=== PATIENT | male | born 1935 | race Hispanic/Latino ===

== ENCOUNTER 2016-05-15 14:52 | Observation (INO) | payer MEDICARE, OTHER ==
[2016-05-15 15:07] VITALS: BMI 26.6
--- NOTE | 2016-05-15 15:38 | ED PDOC ---
Arrival/HPI - General Chief Complaint: Abdominal Pain Time Seen by Provider: 05/15/16 15:06 Historian: Patient - History of Present Illness Narrative History of Present Illness (Text): 05/15/16 15:31 80-year-old male presents today with a sudden onset of diffuse abdominal cramping. Patient states symptoms started about an hour to an hour and a half prior to arrival. Patient is C/O crampy diffuse abd pain. no n/v/d/c. no cp or sob. c/o weakness. denies fever/chills. pt states he was feeling fine until symptoms started after eating a cracker with butter. pt states pain is starting to radiate to the back. no urinary symptoms. no other complaints. Past Medical History - Provider Review Nursing Documentation Reviewed: Yes - Travel History Have you recently traveled outside [place] w/in the past 3 mons?: No - Infectious Disease Hx of Infectious Diseases: None - Cardiac Hx Cardiac Disorders: Yes Other/Comment: cardiac stent x2 15 yrs ago had mi - Endocrine/Metabolic Hx Diabetes Mellitus Type 2: Yes - Hematological/Oncological Hx Cancer: Yes (skin ca melanoma, l arm, r leg) - Integumentary Other/Comment: scars to left arm and right leg from melanoma sx, scar to left groin lump removed, left thigh skin graft scar to left heel - Musculoskeletal/Rheumatological Hx Falls: No - Psychiatric Hx Substance Use: No - Surgical History Other/Comment: pt stepped on a nail developed an infection skin graft from left thigh to left heel, left heel smaller than right, sx done by dr rico according to pt dr rico removed part of left heel and he had cancer of left heel, left groin lump removed 1 yr later - Anesthesia Hx Anesthesia: No Hx Anesthesia Reactions: No Hx Malignant Hyperthermia: No Family/Social History - Physician Review Nursing Documentation Reviewed: Yes Family/Social History: Unknown Family HX Smoking Status: Former Smoker Hx Alcohol Use: No Hx Substance Use: No Allergies/Home Meds Allergies/Adverse Reactions: Allergies No Known Allergies Allergy (Verified 03/21/15 09:56) Home Medications: Home Meds Medication Instructions Recorded Confirmed GlipiZIDE [Glucotrol] 2.5 mg PO DAILY 03/21/15 03/21/15 Ramipril [Altace] 10 mg PO DAILY 03/21/15 03/21/15 Simvastatin 20 mg PO DIN 03/21/15 03/21/15 Review of Systems - Review of Systems Constitutional: Fatigue. absent: Fevers Respiratory: absent: SOB, Cough Cardiovascular: absent: Chest Pain, Palpitations Gastrointestinal: Abdominal Pain. absent: Constipation, Diarrhea, Nausea, Vomiting Genitourinary Male: absent: Dysuria, Frequency, Hematuria Musculoskeletal: Back Pain. absent: Arthralgias Skin: absent: Rash, Pruritis Neurological: absent: Headache, Dizziness Psychiatric: absent: Anxiety, Depression Physical Exam Vital Signs Reviewed: Yes Vital Signs Temp Pulse Resp BP Pulse Ox 05/15/16 19:27 76 16 149/78 95 05/15/16 16:53 80 17 145/60 96 05/15/16 15:07 97.3 F L 72 18 181/79 H 98 Temperature: Afebrile Blood Pressure: Normal Pulse: Regular Respiratory Rate: Normal Appearance: Positive for: Well-Appearing, Non-Toxic, Uncomfortable Pain Distress: Moderate Mental Status: Positive for: Alert and Oriented X 3 - Systems Exam Head: Present: Atraumatic Mouth: Present: Moist Mucous Membranes Neck: Present: Normal Range of Motion Respiratory/Chest: Present: Clear to Auscultation, Good Air Exchange. No: Respiratory Distress, Accessory Muscle Use Cardiovascular: Present: Regular Rate and Rhythm Abdomen: Present: Tenderness (minimally diffuse tenderness), Normal Bowel Sounds. No: Distention, Peritoneal Signs, Rebound, Guarding Back: Present: Normal Inspection Upper Extremity: Present: Normal ROM Lower Extremity: Present: Normal ROM Neurological: Present: GCS=15, Speech Normal Skin: Present: Warm, Dry, Normal Color. No: Rashes Psychiatric: Present: Alert, Oriented x 3 Medical Decision Making ED Course and Treatment: 05/15/16 15:39 Patient is nontoxic well appearing with stable vital signs presenting with diffuse abdominal pain, diaphoretic. pt immediately seen and evaluated by dr. pabon ekg; NSR at 76b/m, no st elevations, normal intervals. reviewed by dr. pabon. cxr; wnl CBC wnl CMP glucose 193 Amylase wnl Lipase wnl lactate: 3.0 trop: <0.01 Urinalysis: + ketones Patient reassessment:pt had multiple bowel movement in er; states he is feeling a little better. does not want pain medications. CAT scan: FINDINGS: CT ANGIOGRAPHY OF THE CHEST WITH & WITHOUT CONTRAST: AORTA (CHEST AND ABDOMEN): The thoracic and abdominal aorta are unremarkable, without aneurysm, dissection or rupture. No intramural thrombus identified in the thoracic aorta on the non-contrast ct of the chest. The celiac axis, superior mesenteric artery, inferior mesenteric artery and the renal arteries are widely patent. The pelvic arteries are unremarkable. LUNGS: Clear. No nodule, mass or consolidation. MEDIASTINUM: Unremarkable. Normal caliber aorta and pulmonary arterial trunk. No aortic dissection. Normal size heart. There is calcification of the coronary arteries LYMPH NODES: Unremarkable. PLEURA: Unremarkable. No pneumothorax. No pleural fluid. BONES: Unremarkable. OTHER FINDINGS: None. CT ANGIOGRAPHY OF THE ABDOMEN AND PELVIS WITH CONTRAST: LIVER: Unremarkable. No gross lesion or ductal dilatation. GALLBLADDER AND BILE DUCTS: Unremarkable. PANCREAS: Unremarkable. No gross lesion or ductal dilatation. SPLEEN: Unremarkable. ADRENALS: Unremarkable. No mass. KIDNEYS AND URETERS: Unremarkable. No hydronephrosis. No solid mass. VASCULATURE: Unremarkable. No aortic aneurysm. STOMACH AND BOWEL: Unremarkable. No obstruction. No gross mural thickening. APPENDIX: Normal appendix. PERITONEUM: Unremarkable. No free fluid. No free air. LYMPH NODES: Unremarkable. No enlarged lymph nodes. BLADDER: Unremarkable. REPRODUCTIVE: Unremarkable. BONES: No acute fracture. OTHER FINDINGS: None. IMPRESSION: No evidence of dissection or aneurysm. No evidence of pulmonary embolus pt reassessment; still with abdominal pain. pt only wanted 1/2 of the medication for pain. will repeat lactic acid; case discussed with dr. dawson; will admit observational status to tele for lactic acidosis and abdominal pain. Impression: Abdominal pain, lactic acidosis admit to tele dr. dawson 05/15/16 19:54 Repeat lactic acid; 1.9 - Lab Interpretations Lab Results: 05/15/16 15:30 05/15/16 15:30 Lab Results 05/15/16 17:05: Urine Color Yellow, Urine Appearance Clear, Urine pH 5.5, Ur Specific [place] >= 1.030, Urine Protein 100 H, Urine Glucose (UA) 100 H, Urine Ketones Trace H, Urine Blood Moderate H, Urine Nitrate Negative, Urine Bilirubin Negative, Urine Urobilinogen 0.2, Ur Leukocyte Esterase Negative, Urine RBC 0 - 2, Urine WBC 0 - 2, Ur Epithelial Cells 0 - 2, Urine Bacteria Few 05/15/16 15:30: WBC 8.7 D, RBC 6.49 H, Hgb 12.3 L, Hct 37.5 L, MCV 57.8 L, MCH 19.0 L, MCHC 32.8, RDW 17.8 H, Plt Count 177, Gran % 59.9, Lymph % (Auto) 32.8, [place] % (Auto) 3.8, Eos % (Auto) 2.3, Baso % (Auto) 1.2, Gran # 5.21, Lymph # 2.9 , [place] # 0.3, Eos # 0.2, Baso # 0.10, PT 11.7, INR 1.08, APTT 25.8, pO2 82 H, VBG pH 7.34, VBG pCO2 41.0, VBG HCO3 22.1, VBG Total CO2 23.4, VBG O2 Sat (Calc ) 97.7 H, VBG Base Excess -3.5 L, VBG Potassium 3.6, Glucose 196 H, Lactate 3.0 H, FiO2 21.0, Sodium 138.0, Potassium 3.4 L, Chloride 103.0, Carbon Dioxide 23, Anion Gap 16, BUN 9, Creatinine 0.8, Est GFR ( Amer) > 60, Est GFR (Non- Af Amer) > 60, Random Glucose 193 H, Calcium 9.4, Total Bilirubin 0.8, AST 26, ALT 18, Alkaline Phosphatase 70, Lactate Dehydrogenase 438, Total Creatine Kinase 72, Troponin I < 0.01 D, Total Protein 7.9, Albumin 4.4, Globulin 3.4, Albumin/Globulin Ratio 1.3, Amylase 96, Lipase 79, Venous Blood Potassium 3.6, Blood Type A POSITIVE, Antibody Screen Negative, BBK History Checked No verified bt - RAD Interpretation Radiology Orders: 05/15/16 15:23 CHEST PORTABLE [RAD] Stat 05/15/16 16:06 ANGIOGRAPHY DISECTION PROTOCOL [CT] Stat - Medication Orders Current Medication Orders: Discontinued Medications Sodium Chloride (Sodium Chloride 0.9%) 500 mls @ 999 mls/hr IV .Q31M STA Stop: 05/15/16 16:25 Last Admin: 05/15/16 16:15 Dose: 999 MLS/HR eMAR Start Stop Document 05/15/16 16:15 SF (Rec: 05/15/16 16:15 SF [id number]) Intravenous Solution Start Date 05/15/16 Start Time 16:15 End Date 05/15/16 End time 16:46 Total Infusion Time 31 Iohexol (Omnipaque 350 150 Ml) Confirm Administered Dose 150 ml .ROUTE .STK-MED ONE Stop: 05/15/16 16:23 Morphine Sulfate (Morphine) 2 mg IVP STAT STA Stop: 05/15/16 15:56 Last Admin: 05/15/16 16:19 Dose: 2 MG MAR Pain Assessment Document 05/15/16 16:19 SF (Rec: 05/15/16 16:20 [email or web address] Pain Reassessment Is this a pain reassessment? Yes Sleep Is patient sleeping during reassessment? No Presence of Pain Presence of Pain Yes Pain Scale Used Pain Scale Used Numeric Location Pain Location Body Site Abdomen Description Description Constant Intensity of Pain at present 7 IVP Administration Document 05/15/16 16:19 SF (Rec: 05/15/16 16:20 [email or web address] Charges for Administration # of IVP Administrations 1 Disposition/Present on Arrival - Present on Arrival Any Indicators Present on Arrival: No History of DVT/PE: No History of Uncontrolled Diabetes: No Urinary Catheter: No History of Decub. Ulcer: No History Surgical Site Infection Following: None - Disposition Have Diagnosis and Disposition been Completed?: Yes Diagnosis: Intractable abdominal pain Disposition: HOSPITALIZED Disposition Time: 18:00 Patient Plan: Observation, Telemetry Patient Problems: Current Active Problems Problem Status Diagnosed Intractable abdominal pain Acute Condition: FAIR
[2016-05-15 15:49] LABS: ADD MANUAL DIFF? NO
--- NOTE | 2016-05-15 15:54 | RAD ---
HISTORY: ABD PAIN COMPARISON: 03/21/2015 FINDINGS: LUNGS: No active pulmonary disease. PLEURA: No significant pleural effusion identified, no pneumothorax apparent. CARDIOVASCULAR: Normal. OSSEOUS STRUCTURES: No significant abnormalities. VISUALIZED UPPER ABDOMEN: Normal. OTHER FINDINGS: None. IMPRESSION: No active disease.
[2016-05-15 15:55] LABS: BASO % 1.2 % (0.0-3.0); EOS # 0.2 (0.0-0.7); EOS % 2.3 % (1.5-5.0); GRAN # 5.21 (1.4-6.5); GRAN % 59.9 % (50.0-68.0); HEMATOCRIT 37.5 % (42.0-52.0); LYMPH # 2.9 (1.2-3.4); LYMPH % 32.8 % (22.0-35.0); MEAN CELL VOLUME 57.8 fL (80.0-105.0); MEAN CORPUSCULAR HGB CONC 32.8 g/dl (31.0-37.0); MONO # 0.3 (0.1-0.6); MONO % 3.8 % (1.0-6.0); PLATELET COUNT 177 10^3/uL (120.0-450.0); RED CELL DISTRIBUTION WIDTH 17.8 % (11.5-14.5); WHITE BLOOD COUNT 8.7 10^3/ul (4.5-11.0)
[2016-05-15] MEDS ORDERED: Sodium Chloride 0.9% 500 ML IV STA (15:55)
[2016-05-15] MEDS ORDERED: Morphine 2 mg/ml ISec IVP STA (15:55)
[2016-05-15 15:56] LABS: VENOUS BLOOD GAS BASE EXCESS -3.5 mmol/L (0.0-2.0); VENOUS BLOOD PH 7.34 (7.32-7.43)
[2016-05-15 16:04] LABS: ALB/GLOB RATIO 1.3 (1.1-1.8); ALKALINE PHOSPHATASE 70 U/L (38-133); ALT/SGPT 18 U/L (7-56); AMYLASE 96 U/L (35-125); AST/SGOT 26 U/L (15-59); BILIRUBIN,TOTAL 0.8 mg/dL (0.2-1.3); BLOOD UREA NITROGEN 9 mg/dL (7-21); CALCIUM 9.4 mg/dL (8.4-10.5); CARBON DIOXIDE 23 mmol/L (21-33); CHLORIDE 100 mmol/L (98-107); GFR AFRICAN-AMERICAN > 60; GLUCOSE,RANDOM 193 mg/dL (70-110); LIPASE 79 U/L (23-300); POTASSIUM 3.4 mmol/L (3.6-5.0); SODIUM 136 mmol/L (132-148); TOTAL PROTEIN 7.9 g/dL (5.8-8.3)
[2016-05-15 16:06] LABS: INR 1.08 (0.93-1.08); PARTIAL THROMBOPLASTIN TIME 25.8 Seconds (23.7-30.8)
[2016-05-15 16:18] LABS: TROPONIN I < 0.01 ng/mL
[2016-05-15 17:28] LABS: PH,URINE 5.5 (4.7-8.0); URINE BILIRUBIN NEGATIVE (NEGATIVE); URINE BLOOD MODERATE (NEGATIVE); URINE GLUCOSE (UA) 100 mg/dL (NEGATIVE); URINE KETONE TRACE mg/dL (NEGATIVE); URINE LEUKOCYTE ESTERASE NEGATIVE Leu/uL (NEGATIVE); URINE PROTEIN 100 mg/dL (<30 mg/dL); URINE UROBILINOGEN 0.2 E.U./dL (<1 E.U./dL)
[2016-05-15 17:30] LABS: URINE APPEARANCE CLEAR (CLEAR); URINE COLOR YELLOW (YELLOW)
[2016-05-15 17:43] LABS: URINE BACTERIA FEW (NEG); URINE EPITHELIAL CELLS 0 - 2 /hpf (0-5); URINE RBC 0 - 2 /hpf (0-2); URINE WBC 0 - 2 /hpf (0-6)
--- NOTE | 2016-05-15 18:12 | CT ---
PROCEDURE: CT Angiography Chest, Abdomen and Pelvis with and without intravenous contrast HISTORY: diffuse abdominal pain, back pain COMPARISON: None. TECHNIQUE: Contiguous axial images of the chest, abdomen and pelvis were obtained in the phase of aortic enhancement. A noncontrast enhanced CT of the chest was also obtained to evaluate for possible intramural thrombus. Coronal and sagittal reformats were generated. IV dose administered: 145 cc of Omni 350 Radiation dose: Total exam DLP = 1666 mGy-cm. FINDINGS: CT ANGIOGRAPHY OF THE CHEST WITH & WITHOUT CONTRAST: AORTA (CHEST AND ABDOMEN): The thoracic and abdominal aorta are unremarkable, without aneurysm, dissection or rupture. No intramural thrombus identified in the thoracic aorta on the non-contrast ct of the chest. The celiac axis, superior mesenteric artery, inferior mesenteric artery and the renal arteries are widely patent. The pelvic arteries are unremarkable. LUNGS: Clear. No nodule, mass or consolidation. MEDIASTINUM: Unremarkable. Normal caliber aorta and pulmonary arterial trunk. No aortic dissection. Normal size heart. There is calcification of the coronary arteries LYMPH NODES: Unremarkable. PLEURA: Unremarkable. No pneumothorax. No pleural fluid. BONES: Unremarkable. OTHER FINDINGS: None. CT ANGIOGRAPHY OF THE ABDOMEN AND PELVIS WITH CONTRAST: LIVER: Unremarkable. No gross lesion or ductal dilatation. GALLBLADDER AND BILE DUCTS: Unremarkable. PANCREAS: Unremarkable. No gross lesion or ductal dilatation. SPLEEN: Unremarkable. ADRENALS: Unremarkable. No mass. KIDNEYS AND URETERS: Unremarkable. No hydronephrosis. No solid mass. VASCULATURE: Unremarkable. No aortic aneurysm. STOMACH AND BOWEL: Unremarkable. No obstruction. No gross mural thickening. APPENDIX: Normal appendix. PERITONEUM: Unremarkable. No free fluid. No free air. LYMPH NODES: Unremarkable. No enlarged lymph nodes. BLADDER: Unremarkable. REPRODUCTIVE: Unremarkable. BONES: No acute fracture. OTHER FINDINGS: None. IMPRESSION: No evidence of dissection or aneurysm. No evidence of pulmonary embolus
--- NOTE | 2016-05-15 18:21 | CARD ---
APPROVED REPORT EKG Measurement Heart [id number] SD 208P [id number] <Conclusion> Normal sinus rhythm Septal infarct, age undetermined Abnormal ECG
[2016-05-15 19:02] LABS: VENOUS BLOOD GAS BASE EXCESS -2.2 mmol/L (0.0-2.0); VENOUS BLOOD PH 7.28 (7.32-7.43)
[2016-05-15] MEDS: Insulin Reg-LOW-Coverage SC SCH (22:08)
--- NOTE | 2016-05-15 22:55 | CP.PCM.CON ---
History of Present Illness - History of Present Illness History of Present Illness: General Surgery consult note for Dr. Muir Consult reason: abdominal pain/diarrhea Pt is an 80 M with PMH of CAD with cardiac stents, DVT, DM2, melanoma, and HLD who presented to the ED today with abdominal cramping pain for a few hours duration. Patient stated he had just finished eating lunch of cookies and butter when he experienced diffuse cramping abdominal pain that was eventually accompanied by lower back pain. Patient stated that pain improved substantially after he had several watery bowel movements in the ED. Patient has had 7 liquid BM's of light brown liquid stool. Patient denies any melena, hematochezia, nausea, vomiting, fevers, chills, dysuria, hematuria, flank pain, chest pain, palpitations, and SOB. Pt denies any previous episodes. Patient denies eating any spoiled food, sick contacts, or any prior history of indigestion, constipation, diarrhea. Lactic acid on admit: 3.0. Lactic acid 3 hours later: 1.9 CT angio of chest, abdomen, and pelvis with IV contrast: no aneurysms, pulmonary embolisms, abdominal and pelvic vessels patent, no signs of appendicitis or bowel ishemia. Pt states mild residual abdominal pain and persistent diarrhea, but denies nausea, vomiting, back pain, or any other symptoms. PMH: CAD, DM2, HLD, DVT PSH: melanoma of the skin excision (multiple), Debridement and skin graft of left heel wound, L groin lymph node excisional biopsy All: NKDA Social: smoked 2PPD for 50 years, quit 15 years ago. History of 2-3 beers on weekends, quit 50 years ago. Denies drug use. Review of Systems - Review of Systems All systems: reviewed and no additional remarkable complaints except - Constitutional Constitutional: As Per HPI - EENT Nose/Mouth/Throat: absent: Nasal Congestion, Nasal Discharge - Cardiovascular Cardiovascular: As Per HPI - Respiratory Respiratory: As Per HPI - Gastrointestinal Gastrointestinal: As Per HPI - Genitourinary Genitourinary: As Per HPI - Musculoskeletal Musculoskeletal: Muscle Cramps (occasional right calf cramps). absent: Numbness , Tingling - Integumentary Integumentary: absent: Lesions, New Lesions - Neurological Neurological: absent: Numbness, Tingling - Endocrine Endocrine: absent: Fatigue, Palpitations Past Patient History - Infectious Disease Hx of Infectious Diseases: None - Past Social History Smoking Status: Former Smoker Alcohol: Other (former occasional drinker) Drugs: Denies Home Situation {Lives}: Alone - CARDIAC Hx Cardiac Disorders: Yes Hx Hypercholesterolemia: Yes Other/Comment: cardiac stent x2 15 yrs ago had mi - ENDOCRINE/METABOLIC Hx Diabetes Mellitus Type 2: Yes - HEMATOLOGICAL/ONCOLOGICAL Hx Cancer: Yes (skin ca melanoma, l arm, r leg) - INTEGUMENTARY Other/Comment: scars to left arm and right leg from melanoma sx, scar to left groin lump removed, left thigh skin graft scar to left heel - MUSCULOSKELETAL/RHEUMATOLOGICAL Hx Falls: No - PSYCHIATRIC Hx Substance Use: No - SURGICAL HISTORY Other/Comment: pt stepped on a nail developed an infection skin graft from left thigh to left heel, left heel smaller than right, sx done by dr rico according to pt dr rico removed part of left heel and he had cancer of left heel, left groin lump removed 1 yr later - ANESTHESIA Hx Anesthesia: No Hx Anesthesia Reactions: No Hx Malignant Hyperthermia: No Meds Allergies/Adverse Reactions: Allergies Allergy/AdvReac Type Severity Reaction Status Date / Time No Known Allergies Allergy Verified 03/21/15 09:56 - Medications Medications: Current Medications Apixaban (Eliquis) 5 mg PO BID [facility] PRN Reason: Protocol Atorvastatin Calcium (Lipitor) 10 mg PO DIN ANGIE Glipizide (Glucotrol) 2.5 mg PO DAILY [facility] Insulin Human Regular (Humulin R Low) 0 units SC ACHS [facility] PRN Reason: Protocol Last Admin: 05/15/16 22:08 Dose: Not Given Metoprolol Tartrate (Lopressor) 25 mg PO BID ANGIE Ramipril (Altace) 10 mg PO DAILY [facility] Physical Exam - Constitutional Appears: Well, Non-toxic, No Acute Distress - Head Exam Head Exam: ATRAUMATIC, NORMOCEPHALIC - Eye Exam Eye Exam: Normal appearance. absent: Conjunctival injection, Scleral icterus - ENT Exam ENT Exam: Mucous Membranes Moist, Normal Oropharynx - Respiratory Exam Respiratory Exam: Clear to Auscultation Bilateral, NORMAL BREATHING PATTERN. absent: Accessory Muscle Use - Cardiovascular Exam Cardiovascular Exam: RRR, +S1, +S2 - GI/Abdominal Exam GI & Abdominal Exam: Distended, Soft. absent: Guarding, Mass, Tenderness - Extremities Exam Extremities exam: Positive for: normal inspection, pedal pulses present. Negative for: calf tenderness, pedal edema, tenderness - Back Exam Back exam: NORMAL INSPECTION. absent: paraspinal tenderness, rash noted - Neurological Exam Neurological exam: Alert, Oriented x3 - Psychiatric Exam Psychiatric exam: Normal Affect, Normal Mood - Skin Skin Exam: Dry, Intact, Normal Color, Warm Results - Vital Signs Recent Vital Signs: Last Vital Signs Temp 97.3 F L 05/15/16 15:07 Pulse 76 05/15/16 19:27 Resp 16 05/15/16 19:27 BP 149/78 05/15/16 19:27 Pulse Ox 95 05/15/16 19:27 - Labs Result Diagrams: 05/15/16 15:30 05/15/16 15:30 Labs: Laboratory Results - last 24 hr 05/15/16 05/15/16 05/15/16 18:30 20:30 21:30 pO2 30 VBG pH 7.28 L VBG pCO2 54.0 VBG HCO3 25.4 VBG Total CO2 27.1 VBG O2 Sat (Calc) 50.2 VBG Base Excess -2.2 L VBG Potassium 5.0 Sodium 135.0 Chloride 103.0 Glucose 138 H Lactate 1.9 FiO2 21.0 POC Glucose (mg/dL) 127 H Venous Blood Potassium 5.0 Blood Type Confirm A POSITIVE - Imaging and Cardiology CT scan - abdomen Status: Image reviewed by me, Report reviewed by me CT scan - chest Status: Image reviewed by me, Report reviewed by me CT scan - pelvis Status: Image reviewed by me, Report reviewed by me Assessment & Plan - Assessment and Plan (Free Text) Assessment: 80M with PMH of CAD, DVT, DM2, and HLD with diffuse cramping abdominal pain and diarrhea afebrile, VSS no leukocytosis, mild anemia Lactic acid on admit: 3.0. Lactic acid 3 hours later: 1.9 CT angio of chest, abdomen, and pelvis with IV contrast: no aneurysms, pulmonary embolisms, abdominal and pelvic vessels patent, no signs of appendicitis or bowel ischemia. Plan: -No indication for emergent surgical intervention: abdominal exam benign, lactic acid wnl, pain improved, no acute pathology on CTA -serial abdominal exams -f/u AM labs -ADAT -Monitor I/O's -management per primary team -pain and nausea medication PRN, DVT/GI ppx -further recs per Dr. Muir Thank you for this consult Vicki Sterling, PGY1
[2016-05-16 00:07] VITALS: RESP 20
[2016-05-16 05:37] VITALS: O2SAT 98
[2016-05-16] MEDS ORDERED: Pantoprazole 40 mg EC Tab PO SCH (06:30)
[2016-05-16 07:37] LABS: MEAN CELL VOLUME 57.2 fL (80.0-105.0); MEAN CORPUSCULAR HEMOGLOBIN 18.9 pg (25.0-35.0); PLATELET COUNT 189 10^3/uL (120.0-450.0); RED CELL DISTRIBUTION WIDTH 17.9 % (11.5-14.5); WHITE BLOOD COUNT 8.6 10^3/ul (4.5-11.0)
[2016-05-16 07:50] LABS: ALB/GLOB RATIO 1.3 (1.1-1.8); ALKALINE PHOSPHATASE 57 U/L (38-133); ALT/SGPT 19 U/L (7-56); AMYLASE 77 U/L (35-125); AST/SGOT 28 U/L (15-59); BILIRUBIN,TOTAL 0.7 mg/dL (0.2-1.3); BLOOD UREA NITROGEN 14 mg/dL (7-21); CALCIUM 8.6 mg/dL (8.4-10.5); CARBON DIOXIDE 22 mmol/L (21-33); CHLORIDE 104 mmol/L (95-110); GFR AFRICAN-AMERICAN > 60; GLUCOSE,RANDOM 126 mg/dL (70-110); LIPASE 47 U/L (23-300); POTASSIUM 3.8 mmol/L (3.6-5.0); SODIUM 137 mmol/L (132-148); TOTAL PROTEIN 7.1 g/dL (5.8-8.3)
[2016-05-16] MEDS: Insulin Reg-LOW-Coverage SC SCH (08:14)
--- NOTE | 2016-05-16 08:51 | CP.PCM.PN ---
Subjective - Date & Time of Evaluation Date of Evaluation: 05/16/16 Time of Evaluation: 08:42 - Subjective Subjective: SURGICAL PROGRESS NOTE FOR DR. MUIR Patient seen and examined at bedside. Patient continues to c/o of abd pain diffusely, with watery diarrhea. Denies having any blood in stool. Also c/o nausea but denies having any vomiting. Patient had one episode of cold sweats when the abd pain began. Objective - Vital Signs/Intake and Output Vital Signs (last 24 hours): Temp Pulse Resp BP Pulse Ox 98.4 F 84 20 157/80 H 98 05/16/16 05:36 05/16/16 07:35 05/16/16 05:36 05/16/16 05:36 05/16/16 05:36 Intake and Output: 05/16/16 05/16/16 06:59 18:59 Intake Total 240 Balance 240 - Medications Medications: Current Medications Apixaban (Eliquis) 5 mg PO BID [facility] PRN Reason: Protocol Atorvastatin Calcium (Lipitor) 10 mg PO DIN [facility] Glipizide (Glucotrol) 2.5 mg PO DAILY [facility] Insulin Human Regular (Humulin R Low) 0 units SC ACHS [facility] PRN Reason: Protocol Last Admin: 05/16/16 08:14 Dose: Not Given Metoprolol Tartrate (Lopressor) 25 mg PO BID [facility] Ondansetron HCl (Zofran Tab) 4 mg PO Q8H PRN PRN Reason: Nausea/Vomiting Pantoprazole Sodium (Protonix Ec Tab) 40 mg PO 0630 [facility] Last Admin: 05/16/16 05:53 Dose: 40 mg Ramipril (Altace) 10 mg PO DAILY [facility] - Labs Labs: 05/16/16 07:00 05/16/16 07:00 PT 11.7 Seconds (9.9-11.8) 05/15/16 15:30 INR 1.08 (0.93-1.08) 05/15/16 15:30 APTT 25.8 Seconds (23.7-30.8) 05/15/16 15:30 - Constitutional Appears: Non-toxic, No Acute Distress - Respiratory Exam Respiratory Exam: absent: Accessory Muscle Use, Respiratory Distress - GI/Abdominal Exam GI & Abdominal Exam: Soft. absent: Distended, Firm, Rigid, Tenderness - Neurological Exam Neurological Exam: Alert, Awake, Oriented x3 - Psychiatric Exam Psychiatric exam: Normal Affect, Normal Mood - Skin Skin Exam: Dry, Intact, Normal Color, Warm Assessment and Plan - Assessment and Plan (Free Text) Assessment: 80M with PMH of CAD, DVT, DM2, and HLD with diffuse cramping abdominal pain and diarrhea. Plan: -No indication for emergent surgical intervention -management per primary team Will discuss with attending Dr. Muir for further recs Bobbi Medina PGY1
--- NOTE | 2016-05-16 09:56 | HP ---
CHIEF COMPLAINT AND HISTORY OF PRESENT ILLNESS: This is an 80-year-old male who is coming in to the hospital with abdominal pain. He has a past medical history of coronary artery disease, diabetes typ e 2, melanoma, dyslipidemia and DVT. He came in with crampy abdominal pain. He says that it was acu te onset, started about an hour prior to coming in to the hospital. He did not have any chest pain, no shortness of breath, no nausea, no vomiting, no fevers or chills, no dysuria or frequency. The pa herlinda says it started after he had been eating crackers. He said it was 10/10 pain. Nothing was delia ing the pain better or worse, so he came in for further evaluation. ALLERGIES: No known drug allergies. HOME MEDICATIONS: Glucotrol, Altace and simvastatin. PAST MEDICAL HISTORY: As above. PAST SURGICAL HISTORY: 1. Skin excision of multiple myeloma. 2. Debridement and skin grafting of left heel wound. 3. Left groin lymph node excision and biopsy. SOCIAL HISTORY: He smoked 2 packs per day for 50 years and quit about 15 years ago. He occasionally drinks alcohol on the weekend. Denies any drug use. PHYSICAL EXAMINATION: VITAL SIGNS: Temperature is 98.4, pulse of 93, blood pressure 157/80, respirations 20, O2 saturation 98%. Height is 5 feet 7 inches, weight is 170 pounds, BMI is 26.6. GENERAL: Patient lying in bed, flat, and in no apparent distress. HEAD AND NECK EXAM: Atraumatic, normocephalic. Conjunctivae are pink. Throat clear and mouth with moist mucosa. Oropharynx benign. EYES: Extraocular movements are intact. PERRLA. NECK: Supple. No JVD, thyromegaly, or adenopathy. No bruits. HEART: S1 and S2 regular rate and rhythm. No murmurs, rubs, or gallops. LUNGS: Clear to auscultation bilaterally. No wheezing rales or rhonchi appreciated. No retraction s on exam. ABDOMEN: Soft, nontender, nondistended. Bowel sounds are positive in all quadrants. No rebound. No hepatosplenomegaly. EXTREMITIES: No cyanosis, clubbing, or edema. NEURO: No facial asymmetry, tongue is midline, no uvula deviation. Power is 5/5 in upper extremity and 5/5 in lower extremity. Sensation is normal in upper extremity and lower extremity. PSYCH: Awake, alert, oriented x3. No anxiety or depression symptoms. Good insight. Normal affec t. : No CVA tenderness VASCULAR: 2+ pulses in carotid and pedal pulses. SKIN: No erythema or abnormal nodules noted. SPINE: Normal curvature. LYMPHADENOPATHY: No anterior cervical or posterior cervical adenopathy. No inguinal adenopathy. LABORATORY DATA: CT angio done shows no evidence of dissection. Chest x-ray done shows no active di sease. EKG done shows sinus rhythm. QTC is 463. No ST-T changes. ASSESSMENT: 1. Abdominal pain, resolved. 2. Diabetes, type 2. 3. Dyslipidemia. 4. Coronary artery disease. 5. Deep venous thrombosis. 5. Melanoma. PLAN: The patient is admitted to the hospital. His abdominal pain has resolved. The patient is on Ramipril for his hypertension. He is going to continue with Eliquis for his DVT. He is on Glucotrol for his diabetes. He is on Lipitor for dyslipidemia. He received 1 liter of IV fluids. He is on Z ofran. I will advance his diet to a regular diet to see if he tolerates; if he does, he will be able to go home. The patient said he did have bloating, but that has resolved. Manuel Watkins MD cc: [id number] TT: 05/16/2016 09:56:06 [email or web address]
[2016-05-16 11:44] VITALS: BP 148/85; PULSE 82; TEMP 98.2
== END 2016-05-16 13:29 | disposition home or self-care (01) ==
LOC: ED 14:52 → ERH 18:21 → 2RSO 21:16
PROVIDERS: ADMIT Internal Medicine Nephrology; ATTEND Internal Medicine Nephrology
DX: R10.9 Unspecified abdominal pain (principal); E11.9 Type 2 diabetes mellitus without complications; E78.5 Hyperlipidemia, unspecified; I25.10 Atherosclerotic heart disease of native coronary artery without angina pectoris; E87.2 Acidosis; R19.7 Diarrhea, unspecified; Z79.84 Long term (current) use of oral hypoglycemic drugs; Z86.718 Personal history of other venous thrombosis and embolism; Z79.01 Long term (current) use of anticoagulants; Z85.820 Personal history of malignant melanoma of skin; Z95.5 Presence of coronary angioplasty implant and graft; Z87.891 Personal history of nicotine dependence
CPT/HCPCS: 36415; 71010; 71275; 74175; 80053; 81001; 82150; 82550; 82803; 82948; 83615; 83690; 83735; 84484; 85025; 85027; 85610; 85730; 86850; 86900; 87040; 93005; 96360; 96374; 99285; G0378; J2270; J7040; Q9967